=== PATIENT | male | born 1980 | race Caucasian/White ===

== ENCOUNTER 2017-07-04 03:05 | Inpatient (IN) ==
[2017-07-04] MEDS ORDERED: Aspirin 81 MG TAB.CHEW PO ONE (03:20)
[2017-07-04] MEDS ORDERED: *HR* Morphine 2 MG/ML SYRINGE IVP ONE ×2 (03:20→03:36)
--- NOTE | 2017-07-04 03:24 | Emergency Department Note ---
Disposition Clinical Impression: Chest pain Qualifiers: Chest pain type: unspecified Qualified Code(s): R07.9 - Chest pain, unspecified Disposition: Admitted As Inpatient Condition: Good Time of Disposition: 06:18 Chest Pain HPI - General Chief Complaint: ED Chest Pain Stated Complaint: chest/back pain Time Seen by Provider: 07/04/17 03:17 Source: patient Limitations: no limitations Vital Signs Reviewed: Yes Nursing Notes Reviewed: Yes - History of Present Illness Pt complaint: chest pain Onset (ago): hour(s) Duration: gradually worsening Onset: during rest Pain Location: substernal Severity scale (1-10): 10 Quality: sharp, other (Stabbing crushing) Improves with: nothing Worsens with: nothing Context: recent illness Associated symptoms: Reports: diaphoresis, dyspnea Treatments prior to arrival chest pain: none - Related Data Home Medications Medication Instructions Recorded Confirmed Atenolol [Tenormin] 11/18/15 Warfarin [Coumadin] 10 mg PO 1800 11/18/15 11/18/15 Previous Rx's Medication Instructions Recorded Docusate [Colace] 100 mg PO BID #30 capsule 08/23/15 Hydrocodone/Acetaminophen [[place] 1 tab PO Q4H PRN #14 tab NS 11/18/15 5-325 Tablet] Promethazine/Dextromethorphan 5 ml PO Q4H PRN #120 ml 02/09/17 [Promethazine-Dm Syrup] levoFLOXacin [Levaquin] 500 mg PO DAILY #7 tablet 02/09/17 Allergies Allergy/AdvReac Type Severity Reaction Status Date / Time No Known Allergies Allergy Verified 08/17/15 16:40 All systems ED: reviewed and negative except as stated. Constitutional: Denies: fever, chills Eyes: Denies: eye discharge ENT ED: Denies: throat pain Cardiovascular: Reports: chest pain Respiratory: Reports: dyspnea Gastrointestinal: Denies: nausea, vomiting Genitourinary: Denies: dysuria Musculoskeletal: Denies: back pain Integumentary: Denies: rash Neurological: Denies: headache Psychiatric: Denies: anxiety Endocrine: Denies: fatigue Hematological/Lymphatic: Denies: easy bleeding Allergic/Immunologic: Denies: facial swelling Chest Pain PMH - Past Medical History Medical history: Reports: DVT, hypertension, pulmonary embolus, other Surgical history: Reports: no surgical history Psychiatric history: Reports: no psych history - Social History Smoking Status: Never smoker Alcohol use: Reports: none Drug use: Reports: none Physical Exam - General Limitations: no limitations General appearance: alert, in no apparent distress - Head Head exam: normocephalic - Eye Eye exam: Present: EOMI. Absent: conjunctival injection - ENT ENT exam: mucous membranes moist - Neck Neck exam: Present: full ROM - Chest Chest inspection: Present: symmetric chest wall rise - Respiratory Respiratory exam: Present: normal lung sounds bilaterally. Absent: respiratory distress - Cardiovascular Cardiovascular exam: Present: normal rhythm - Abdominal Exam Abdominal exam: Present: soft, Non-Tender - Extremities Exam Extremities exam: Present: normal inspection, full ROM, normal capillary refill - Back Exam Back exam: Present: full ROM - Neurological Exam Neurological exam: Present: alert - Psychiatric Psychiatric exam: Present: normal affect, normal mood - Skin Skin exam: Present: warm, dry, intact, normal color, diaphoresis. Absent: rash , cyanosis Course Course Narrative: 36-year-old male arrives to department by private vehicle with complaints of chest pain, shortness of breath. Symptoms started 1 hour prior to his arrival. He states he was sitting doing nothing at this time. Denies any previous cardiac issues, does does mention a history of full pulmonary embolisms due to antiphospholipid antibody syndrome . Currently taking anti-coagulants. Patient seen and examined. Workup initiated. Initial EKG, concerning for inferior MA. Hold nitroglycerin per Dr. Todd. We will also consider CTA pending labs. - Reevaluation(s) Reevaluation #1: Pt discussed with Dr. Oleary who agreed for admission. He also requested PO potassium. Time: 05:38 Vital Signs Temperature 98.1 F 07/04/17 03:07 Pulse Rate 76 07/04/17 03:07 Respiratory Rate 16 07/04/17 03:07 Blood Pressure 163/95 07/04/17 03:07 O2 Sat by Pulse Oximetry 96 07/04/17 03:07 Temperature 98.3 F 07/04/17 07:40 Pulse Rate 76 07/04/17 07:40 Respiratory Rate 16 07/04/17 07:40 Blood Pressure 149/91 07/04/17 07:40 O2 Sat by Pulse Oximetry 96 07/04/17 07:40 Oxygen Delivery Oxygen Delivery Nasal Cannula Chest Pain - MDM Narrative Medical decision making narrative: Patient is a 36-year-old male nonsmoker that had presented with chest pain. He describes the pain starting while he was at rest sitting on his couch at home., and denies any exertion or activity prior to that. This started just prior to his arrival. Chest pain was accompanied with some shortness of breath, and in the department he was also diaphoretic. He denied any radiation to his neck or his extremities, or any worsening on exertion. He did describe some back pain. Initial EKGs were performed upon patient's arrival and reviewed by resident Dr. Zarco and Dr. Todd, who had advised him nitroglycerin for possible inferior MA. Patient did have some improvement with Dilaudid for his pain during his course here. Patient does have a history of antiphospholipid antibody syndrome, as had history of multiple PEs, and is currently anticoagulated on warfarin. No recent changes. Due to his chest pain, CT was ordered however it showed no concerning signs for PE, however did show groundglass opacities. CTA was actually performed before radiology could provide the portable x-ray. X-ray showed right base consolidation. Patient labs showed negative troponin. He did have an increased white blood cell count , but has denied fevers, cough, chills, night sweats. I discussed patient with Dr. Pelaez who agreed with workup and treatment, and advised admission for cardiac rule out. Patient was discussed with Dr. Oleary who accepted patient. Prior to discharge from the department, patient was given by mouth potassium for hypokalemia. Chest X-Ray 07/04/17 03:10 IMPRESSION: 1. Right base consolidation. In the proper clinical setting, finding is compatible with pneumonia. Recommend follow-up chest radiograph 6-8 weeks post completion of treatment to ensure resolution. If finding persists at that time, CT of the chest would be recommended. If patient does not have clinical symptoms of infection, recommend CT for further evaluation. D/ / Juvencio Aguero MD / Juvencio Aguero MD Interpreting Provider: Juvencio Aguero MD Chest CTA 07/04/17 04:07 IMPRESSION: 1. Limited study with no central or segmental pulmonary embolus. 2. Ground-glass opacities are nonspecific and could indicate infection, inflammation, edema or atelectasis. D/ / Enrico Rodriguez MD / Enrico Rodriguez MD Interpreting Provider: Enrico Rodriguez MD - Lab Data Lab results reviewed: Yes I reviewed the patient's lab results. Result diagrams: 07/04/17 03:24 07/04/17 03:24 Lab Results 07/04/17 07/04/17 07/04/17 Range/Units 03:24 03:24 03:24 WBC 22.0 H (4.3-11.1) K/mcL RBC 6.16 H (4.19-5.50) M/mcL Hgb 16.6 (12.9-16.9) g/dL Hct 48.1 (37.5-50.1) % MCV 78.1 L (83.0-100.0) fL MCH 26.9 L (28.0-33.3) pg MCHC 34.5 (31.6-35.5) g/dL RDW 14.0 (11.5-14.5) % Plt Count 324 (140-400) K/mcL MPV 10.1 (9.4-12.4) fL Immature Gran % 0.7 (0-4) % Seg Neutrophils % 76.7 % Lymphocytes % 14.8 % Monocytes % 5.9 % Eosinophils % 1.4 % Basophils % 0.5 % Neutrophils # 16.9 H (1.6-8.9) K/mcL Lymphocytes # 3.3 (0.6-4.6) K/mcL Monocytes # 1.3 (0.0-1.3) K/mcL Eosinophils # 0.3 (0.0-0.6) K/mcL Basophils # 0.1 (0.0-0.2) K/mcL PT (9.4-12.1) Seconds INR APTT (26.0-36.0) Seconds Sodium 140 (136-145) mEq/L Potassium 2.9 L (3.5-4.5) mEq/L Chloride 101 (98-109) mEq/L Carbon Dioxide 28 (19-29) mEq/L BUN 19 (8-26) mg/dL Creatinine 1.16 (0.72-1.25) mg/dL Est GFR ( Amer) > 60 (> 60) Est GFR (Non-Af Amer) > 60 (> 60) BUN/Creatinine Ratio 16 (6-26) Glucose 207 H (70-99) mg/dL Calculated Osmolality 298 (280-300) Calcium 9.4 (8.6-10.8) mg/dL Troponin I 0.00 (0-0.03) ng/mL 07/04/17 Range/Units 03:25 WBC (4.3-11.1) K/mcL RBC (4.19-5.50) M/mcL Hgb (12.9-16.9) g/dL Hct (37.5-50.1) % MCV (83.0-100.0) fL MCH (28.0-33.3) pg MCHC (31.6-35.5) g/dL RDW (11.5-14.5) % Plt Count (140-400) K/mcL MPV (9.4-12.4) fL Immature Gran % (0-4) % Seg Neutrophils % % Lymphocytes % % Monocytes % % Eosinophils % % Basophils % % Neutrophils # (1.6-8.9) K/mcL Lymphocytes # (0.6-4.6) K/mcL Monocytes # (0.0-1.3) K/mcL Eosinophils # (0.0-0.6) K/mcL Basophils # (0.0-0.2) K/mcL PT 27.0 H (9.4-12.1) Seconds INR 2.4 APTT 63.4 H (26.0-36.0) Seconds Sodium (136-145) mEq/L Potassium (3.5-4.5) mEq/L Chloride (98-109) mEq/L Carbon Dioxide (19-29) mEq/L BUN (8-26) mg/dL Creatinine (0.72-1.25) mg/dL Est GFR ( Amer) (> 60) Est GFR (Non-Af Amer) (> 60) BUN/Creatinine Ratio (6-26) Glucose (70-99) mg/dL Calculated Osmolality (280-300) Calcium (8.6-10.8) mg/dL Troponin I (0-0.03) ng/mL - Radiology Data Radiology results reviewed: Yes I reviewed the patient's radiology results. Chest X-Ray 07/04/17 03:10 IMPRESSION: 1. Right base consolidation. In the proper clinical setting, finding is compatible with pneumonia. Recommend follow-up chest radiograph 6-8 weeks post completion of treatment to ensure resolution. If finding persists at that time, CT of the chest would be recommended. If patient does not have clinical symptoms of infection, recommend CT for further evaluation. D/ / Juvencio Agueor MD / Juvencio Aguero MD Interpreting Provider: Juvencio Aguero MD Chest CTA 07/04/17 04:07 IMPRESSION: 1. Limited study with no central or segmental pulmonary embolus. 2. Ground-glass opacities are nonspecific and could indicate infection, inflammation, edema or atelectasis. D/ / Enrcio Rodriguez MD / Enrico Rodriguez MD Interpreting Provider: Enrico Rodriguez MD - EKG Data EKG attestation: Yes I reviewed and interpreted this EKG. Heart Score - Score History: Moderately Suspicious (risk factors include HTN and obesity) EKG: Non Specific repolarisation Disturbance Age: Less than 45 Risk Factors: 1-2 risk factors Troponin: Less than normal limit HEART Score Total: 3 Attestation Statement - Attestation Attestation: I, Matt Todd MD, personally evaluated this patient and discussed their management with the midlevel provicer, PAC/BENEFITS SPECIALIST. I reviewed the midlevel provider 's note and agree with the documented findings, medical decision making, and plan of care. 36-year-old male presents to the emergency department with a complaint of severe epigastric and lower substernal chest pain which started about midnight tonight. The pain radiates through to the back. Patient describes the pain as a severe pressure-like discomfort. He complains of profuse diaphoresis associated with the pain. Shortness of breath. Nausea. No cardiac history. On examination patient is a well-developed morbidly obese male in moderate distress. He is pale and diaphoretic. No cyanosis. Alert and oriented 3. Chest is nontender to palpation. Breath sounds are clear and equal bilaterally. Heart regular rate and rhythm. Abdomen soft and nontender with normal bowel sounds. Labs reviewed. Troponin 0.00. No STEMI on EKG. Chest x-ray and CTA of the lungs obtained. No pulmonary embolism. Some patchy pulmonary opacities. The hospitalist, Dr. Oleary, was consulted and accepted admission of the patient.
[2017-07-04 03:33] LABS: Basophils # 0.1 K/mcL (0.0-0.2); Basophils % 0.5 %; Eosinophils # 0.3 K/mcL (0.0-0.6); Eosinophils % 1.4 %; Hematocrit 48.1 % (37.5-50.1); Hemoglobin 16.6 g/dL (12.9-16.9); Immature Granulocytes % 0.7 % (0-4); Lymphocytes # 3.3 K/mcL (0.6-4.6); Lymphocytes % 14.8 %; Mean Corpuscular HGB Conc 34.5 g/dL (31.6-35.5); Mean Corpuscular Hemoglobin 26.9 pg (28.0-33.3); Mean Corpuscular Volume 78.1 fL (83.0-100.0); Mean Platelet Volume 10.1 fL (9.4-12.4); Monocytes # 1.3 K/mcL (0.0-1.3); Monocytes % 5.9 %; Neutrophils # 16.9 K/mcL (1.6-8.9); Platelet Count 324 K/mcL (140-400); Red Blood Count 6.16 M/mcL (4.19-5.50); Segmented Neutrophils % 76.7 %
[2017-07-04] MEDS ORDERED: Ondansetron 4 MG/2 ML VIAL IVP ONE (03:35)
[2017-07-04] MEDS ORDERED: *HR* HYDROmorphone (PF) 1 MG/ML SYRINGE IVP ONE ×3 (03:39→06:28)
[2017-07-04 03:41] LABS: INR 2.4
[2017-07-04 03:44] LABS: Activated Partial Thrombo Time 63.4 Seconds (26.0-36.0)
[2017-07-04 03:45] LABS: BUN/Creatinine Ratio 16 (6-26); Blood Urea Nitrogen 19 mg/dL (8-26); Calcium 9.4 mg/dL (8.6-10.8); Carbon Dioxide 28 mEq/L (19-29); Chloride 101 mEq/L (98-109); Glucose 207 mg/dL (70-99); Osmolality,Calculated 298 (280-300); Potassium 2.9 mEq/L (3.5-4.5); Sodium 140 mEq/L (136-145); eGFR For African Americans > 60 (> 60); eGFR For Non-African Americans > 60 (> 60)
[2017-07-04] MEDS ORDERED: *HR* HYDROmorphone (PF) 1 MG/ML SYRINGE ONE (06:40)
[2017-07-04] MEDS ORDERED: Nitroglycerin 0.4 MG TAB.SUBL SL ONE (07:59)
[2017-07-04] MEDS ORDERED: Nitroglycerin 0.4 MG TAB.SUBL SL PRN (08:02)
[2017-07-04] MEDS: Levofloxacin 750 MG/150 ML 750 MG/150 ML BAG IVPB SCH (08:57)
[2017-07-04] MEDS ORDERED: Ondansetron 4 MG/2 ML VIAL IVP PRN (09:21)
[2017-07-04] MEDS ORDERED: Naloxone 0.4 MG/ML INJ IVP PRN (09:21)
[2017-07-04] MEDS ORDERED: Ibuprofen 800 MG TABLET PO PRN (09:27)
[2017-07-04] MEDS ORDERED: *HR* Dextrose 50 % in Water (Syg) 50 ML SYRINGE IVP PRN (09:50)
[2017-07-04] MEDS ORDERED: Dextrose Gel 15 GM PO PRN ×2 (09:50)
[2017-07-04] MEDS ORDERED: D5% in Water 1,000 ML IVC PRN (09:50)
[2017-07-04] MEDS: *HR* HYDROcodone/Acet 7.5/325 mg TABLET PO PRN ×2 (10:03→22:58)
[2017-07-04] MEDS: Pantoprazole 40 MG VIAL IVP SCH (10:03)
[2017-07-04] MEDS: *HR* Morphine 2 MG/ML SYRINGE IVP PRN ×3 (10:09→17:33)
[2017-07-04] MEDS: Ipratropium/Albuterol Neb 3 ML IH SCH ×4 (11:22→23:44)
[2017-07-04] MEDS: Insulin LISPRO 300 UNITS/3 ML VIAL SQ SCH ×2 (12:35→16:45)
--- NOTE | 2017-07-04 13:48 | Internal Med History&Physical ---
<Timothy Lucero - Last Filed: 07/04/17 16:16> Date of Encounter: 07/04/17 Time of Encounter: 09:00 Assessment and Plan (1) Pneumonia Status: Acute Patient presents with chest pain that is pleuritic in nature based on his description of pain increasing with inspiration. CTA of chest today shows no central or segmental pulmonary embolus. Single view chest x-ray today shows right base consolidation compatible with pneumonia. Patient does not currently meet sepsis criteria but WBCs are elevated at 22. IV Levaquin 750 mg daily administered for infection coverage. Legionella and strep pneumoniae urine cultures were ordered. Patient cannot currently produce sputum but will consider sputum culture if this changes. Follow-up labs ordered. Patient to be monitored closely for signs of increasing infection, cardiac and/or respiratory distress. Qualifiers: Pneumonia type: due to unspecified organism Laterality: right Lung location: lower lobe of lung Qualified Code(s): J18.1 - Lobar pneumonia, unspecified organism (2) Chest pain Status: Acute Patient presents with acute chest pain since 1 a.m. this morning that he describes as a pain that becomes severe with inspiration and radiates to his back. Patient denies any cardiac history and has a history of DVT and PE. CT scan of the chest today is negative for PE. Cardiology consult ordered and discussed with Dr. Scott who will see patient. Echocardiogram ordered. Troponins to be trended x2 (first and second troponins both 0.00). Patient placed on continuous cardiac telemetry and supplemental O2 with SpO2 monitoring. Repeat EKG ordered. Stair-step pain medications ordered for pain management. Patient reports SL nitroglycerin did not affect his CP. Will continue to monitor patient and chest pain. Qualifiers: Chest pain type: chest pain on breathing Qualified Code(s): R07.1 - Chest pain on breathing; R07.81 - Pleurodynia (3) SOB (shortness of breath) Status: Acute Patient presents with acute shortness of breath related to chest pain which he states becomes worse upon inspiration and is consistent with findings of suggested pneumonia. Patient placed on supplemental O2 titration if SPO2 less than 92% and continuous SPO2 monitoring. Patient placed as falls precautions/ up with assist/bedrest with bathroom privileges with assist only due to SOB. Will monitor patient and vital signs. (4) Leukocytosis Status: Acute Patient presents with acute leukocytosis and WBC of 22 upon admission to ED. Single view CXR taken today shows right base consolidation compatible with pneumonia. IV Levaquin started for infection control and follow-up labs will be monitored for WBCs Qualifiers: Leukocytosis type: unspecified Qualified Code(s): D72.829 - Elevated white blood cell count, unspecified (5) Hypokalemia Status: Acute Patient presents with potassium level of 2.9 on admission to ED today. Patient received 20 MeQ of potassium in ED and 20 MeQ upon admission to floor. Will monitor patient's electrolytes through follow-up labs. (6) DVT prophylaxis Status: Acute Patient placed on DVT prophylaxis due to current admission protocol, bedrest status, and patient's history of DVTs/PEs. Patient takes Coumadin due to history of DVT/PE. Will hold Coumadin today until cardiology sees patient per cardiology and place bilateral SCDs on patient's LEs. Internal Medicine - H&P: HPI Chief complaint: Chest pain Admitted From: Emergency Dept Plans for Post Hospital Care: Home History of present illness: Mr. Cervantes is a 36 year old male who presents from the ED with chief complaint of chest pain, dyspnea, diaphoresis. Patient states the chest pain began about 1 AM today and has never happened before. He reports the pain becomes worse with inspiration and radiates to his back. He reports chills but denies any nausea, vomiting, fever, cough, or recent illness. Patient received 10 mg of morphine and 3 mg of Dilaudid in the ED which he states did not help with his pain. Patient denies any cardiac history of previous chest pain or CO. Medical history includes DVT, PE, antiphospholipid antibody syndrome, and hypertension. Will order lipid panel to assess for hyperlipidemia. Patient reports he has never smoked. Mr. Cervantes is currently on anticoagulation due to history of DVT/PE. CT scan dated today shows limited study with no central or segmental pulmonary embolus. However, groundglass opacities are nonspecific and could indicate infection, inflammation, edema, or atelectasis. Single view CXR dated today shows right base consolidation compatible with pneumonia. Patient's current WBCs are 22 on admission to ED with heart rate of 76 respiration rate of 16, and temperature of 98.1 F. Patient does not currently meet sepsis criteria but will be treated for chest pain rule-out as well as pneumonia. Mr. Cervantes is at moderate risk for further morbidity based on his current symptoms and history and will be placed as inpatient status with orders for continuous cardiac telemetry, supplemental O2 with continuous SPO2 monitoring, troponins trended x2, echocardiogram, IV Levaquin 750 mg daily, and stair-step pain medications for pain control. Patient to be monitored closely for increasing signs of cardiac and/or respiratory distress. Time spent with patient greater than 40 minutes. Past Med Surg Social Fam HX - Past Medical History Source: patient Medical history: DVT, hypertension, pulmonary embolus, other Psychiatric history: no psych history - Past Surgical History Surgical History: no surgical history - Social History Smoking Status: Never smoker Smokeless Tobacco Status: No Alcohol use: none Drug use: none Occupational status: employed Current living situation: Home, With Family Activity Level: Independent ambulation Recent Out of Country Travel Within the Last 8 Weeks: No Exposure or Possible Exposure to Illness During Travel: No - Family History Father Race: Family Member Ethnicity: Non- Living Status: Still Living Hx Family Cardiac Disorders: Yes (HTN) Hx Family Endocrine Disorder: Yes (DM) Mother Race: Family Member Ethnicity: Non- Living Status: Still Living Hx Family Cardiac Disorders: Yes (Factor V Leiden, PVCs) Sister Race: Family Member Ethnicity: Non- Living Status: Still Living Hx Family Cardiac Disorders: Yes (Factor V Leiden, Afib) Internal Medicine - H&P: Meds Warfarin [Coumadin] 10 mg PO DAILY 11/18/15 [History] Atenolol/Chlorthalidone [Tenoretic 50 Tablet] 1 tab PO DAILY 07/04/17 [History] levoFLOXacin [Levaquin] 750 mg PO DAILY #10 tablet 07/05/17 [Rx] Allergies No Known Allergies Allergy (Verified 08/17/15 16:40) All Systems PM: A 10-system review of systems was performed and is negative for pertinent findings except as documented above in the HPI. - Constitutional Constitutional: no chills, no fever(s), no night sweats - EENT Eyes: no change in vision, no discharge, no pain, no photophobia Ears: no ear discharge, no ear pain, no tinnitus Nose, mouth and throat: no dysphagia, no nasal discharge, no neck pain, no sore throat - Breasts Breasts: as per HPI - Cardiovascular Cardiovascular ROS IM: as per HPI, chest pain, diaphoresis, dyspnea, dyspnea on exertion - Respiratory Respiratory: as per HPI, dyspnea, dyspnea on exertion, pain on inspiration - Gastrointestinal Gastrointestinal: no abdominal pain, no diarrhea, no hematemesis, no hematochezia, no melena, no nausea, no vomiting - Genitourinary Genitourinary ROS male: as per HPI - Musculoskeletal Musculoskeletal ROS IM: no numbness, no tingling - Integumentary Integumentary IM: no rash, no unusual bruising - Neurological Neurological ROS: no confusion, no convulsions, no focal weakness, no numbness, no tingling, no tremor(s) - Psychiatric Psychiatric: as per HPI - Endocrine Endocrine IM: as per HPI - Hematologic/Lymphatic Hematologic/Lymphatic: no easy bruising - Allergic/Immunologic Allergic/Immunologic: as per HPI - Constitutional Vitals: Temp Pulse Resp BP Pulse Ox 98.3 F 81 18 168/89 95 07/04/17 11:54 07/04/17 11:54 07/04/17 11:54 07/04/17 11:54 07/04/17 11:54 General appearance: Present: cooperative, A&O X 3, morbidly obese, pleasant, severe distress, answers questions appropriately - Head Head exam: Present: atraumatic, normocephalic - Eye Eye exam: Present: PERRL, conjuntiva pink, sclera anicteric Pupils: Present: PERRL - ENT ENT exam: Present: normal exam, normal external ear exam - Neck Neck exam general surgery: Present: normal inspection, supple, trachea midline - Respiratory Respiratory exam: Present: accessory muscle use, respiratory distress. Absent: rales, rhonchi, wheezes - Cardiovascular Cardiovascular exam: Present: RRR, +S1, +S2. Absent: diastolic murmur, gallop, rubs, systolic murmur - GI/Abdominal GI/Abdominal exam: Present: normal bowel sounds, soft, no peritoneal signs. Absent: distended, tenderness - Rectal Rectal exam: Present: deferred - Additional comments: exam deferred. - Extremities Exam Extremities exam: Present: warm, radial pulses palpable and symetrical. Absent : calf tenderness, cyanotic, pedal edema - Back Exam Back exam: Present: normal inspection - Neurological Exam Neurological exam: Present: CN II-XII intact, oriented X3, no focal deficits. Absent: pronater drift, facial droop, speech deficit - Psychiatric Psychiatric exam: Present: flat affect - Skin Skin exam: Present: dry, intact Internal Med - H&P Results - Labs CBC & Chem 7: 07/04/17 03:24 07/04/17 15:05 Labs: Cardiac Enzymes 07/04/17 Range/Units 09:44 Troponin I 0.00 (0-0.03) ng/mL - EKG Data EKG shows normal: sinus rhythm - EKG Data Prior EKG available for review: no Interpretation IM: suggestive of ischemia EKG comments: 07/04/17 14:51 EKG dated 07/04/17 shows sinus rhythm and voltage criteria for LVH, possible anterior myocardial infarction of indeterminate age, moderate T-wave abnormality (consider lateral ischemia). - Diagnostic Studies Chest x-ray Additional comments: Impressions Chest X-Ray 07/04/17 03:10 IMPRESSION: 1. Right base consolidation. In the proper clinical setting, finding is compatible with pneumonia. Recommend follow-up chest radiograph 6-8 weeks post completion of treatment to ensure resolution. If finding persists at that time, CT of the chest would be recommended. If patient does not have clinical symptoms of infection, recommend CT for further evaluation. D/ / Juvencio Aguero MD / Juvencio Aguero MD Interpreting Provider: Juvencio Aguero MD Other Images Additional comments: Impressions Chest CTA 07/04/17 04:07 IMPRESSION: 1. Limited study with no central or segmental pulmonary embolus. 2. Ground-glass opacities are nonspecific and could indicate infection, inflammation, edema or atelectasis. D/ / Enrico Rodriguez MD / Enrico Rodriguez MD Interpreting Provider: Enrico Rodriguez MD <Lady Finney - Last Filed: 07/05/17 17:31> Date of Encounter: 07/05/17 Assessment and Plan (1) Antiphospholipid syndrome Status: Acute (2) Chest pain Status: Acute Qualifiers: Chest pain type: chest pain on breathing Qualified Code(s): R07.1 - Chest pain on breathing; R07.81 - Pleurodynia (3) Leukocytosis Status: Acute Qualifiers: Leukocytosis type: unspecified Qualified Code(s): D72.829 - Elevated white blood cell count, unspecified (4) Pneumonia Status: Acute Qualifiers: Pneumonia type: due to unspecified organism Laterality: right Lung location: lower lobe of lung Qualified Code(s): J18.1 - Lobar pneumonia, unspecified organism (5) DVT prophylaxis Status: Acute (6) PNA (pneumonia) Status: Acute Internal Medicine - H&P: HPI History of present illness: Mr. Cervantes is a 36 year old male All Systems PM: A 10-system review of systems was performed and is negative for pertinent findings except as documented above in the HPI. - Constitutional Vitals: Temp Pulse Resp BP Pulse Ox 99.5 F 76 16 163/82 96 07/05/17 11:41 07/05/17 11:41 07/05/17 11:41 07/05/17 11:41 07/05/17 11:41 Internal Med - H&P Results - Labs CBC & Chem 7: 07/05/17 03:03 07/05/17 03:03 Labs: Short CBC 07/05/17 Range/Units 03:03 WBC 16.6 H (4.3-11.1) K/mcL Hgb 14.8 D (12.9-16.9) g/dL Hct 42.7 (37.5-50.1) % Plt Count 209 (140-400) K/mcL Neutrophils # 13.6 H (1.6-8.9) K/mcL BMP 07/05/17 03:03 Sodium 135 L Potassium 3.5 Chloride 96 L Carbon Dioxide 29 BUN 13 Creatinine 0.92 Glucose 116 H Calcium 9.9 - Attending Attestation Patient was in person seen and examined. Plan discussed with nurse practitioner. Detailed examination done patient chest examination is clear without any pleural rub and heart is S1 and S2 rate rhythm regular. and after putting him on ibuprofen he feels much better.
[2017-07-04] MEDS ORDERED: (Atenolol/Chlorthalidone [Tenoretic 50 Tablet] 1 TAB) PO SCH (14:15)
[2017-07-04 16:01] LABS: Amphetamine Screen,Urine Negative ng/mL (Cutoff=1000); Barbiturate Screen,Urine Negative ng/mL (Cutoff=200); Benzodiazepines Screen,Urine Negative ng/mL (Cutoff=200); Cannabinoid Screen,Urine Negative ng/mL (Cutoff = 50); Cocaine Screen,Urine Negative ng/mL (Cutoff= 300); Opiate Screen,Urine Positive ng/mL (Cutoff=300); Phencyclidine Screen,Urine Negative ng/mL (Cutoff=25)
[2017-07-04] MEDS ORDERED: Potassium Chloride 20 MEQ, Lidocaine 1% 2 ML in D5% in Water 250 ML IVPB ONE (16:16)
[2017-07-04] MEDS ORDERED: Magnesium Sulfate 2 GM in D5% in Water 100 ML IVPB ONE (16:17)
[2017-07-04] MEDS ORDERED: *HR* Warfarin 10 MG TABLET PO SCH (18:00)
[2017-07-04 18:01] LABS: Hemoglobin A1C 5.2 %
[2017-07-04] MEDS ORDERED: Insulin LISPRO 300 UNITS/3 ML VIAL SQ SCH (21:00)
[2017-07-04] MEDS ORDERED: Melatonin 3 MG TABLET PO ONE (23:15)
[2017-07-05] MEDS: Ipratropium/Albuterol Neb 3 ML IH SCH ×3 (03:13→11:17)
[2017-07-05 04:02] LABS: Basophils % 0.2 %; Eosinophils % 0.1 %; Hematocrit 42.7 % (37.5-50.1); Immature Granulocytes % 0.6 % (0-4); Lymphocytes # 1.5 K/mcL (0.6-4.6); Lymphocytes % 8.9 %; Mean Corpuscular HGB Conc 34.7 g/dL (31.6-35.5); Mean Corpuscular Hemoglobin 27.8 pg (28.0-33.3); Mean Corpuscular Volume 80.3 fL (83.0-100.0); Mean Platelet Volume 10.2 fL (9.4-12.4); Monocytes # 1.3 K/mcL (0.0-1.3); Monocytes % 8.1 %; Neutrophils # 13.6 K/mcL (1.6-8.9); Platelet Count 209 K/mcL (140-400); Red Blood Count 5.32 M/mcL (4.19-5.50); Red Cell Distribution Width 15.2 % (11.5-14.5); Segmented Neutrophils % 82.1 %
[2017-07-05 04:16] LABS: INR 2.8
[2017-07-05 04:18] LABS: Activated Partial Thrombo Time 63.1 Seconds (26.0-36.0); BUN/Creatinine Ratio 14 (6-26); Blood Urea Nitrogen 13 mg/dL (8-26); Calcium 9.9 mg/dL (8.6-10.8); Carbon Dioxide 29 mEq/L (19-29); Chloride 96 mEq/L (98-109); Chol/HDL Ratio 3.7 (0-4.9); Cholesterol 159 mg/dL (< 200); Glucose 116 mg/dL (70-99); HDL Cholesterol 43 mg/dL (40-59); LDL Cholesterol,Calculated 101 mg/dL (0-99); Magnesium 2.1 mg/dL (1.6-2.6); Osmolality,Calculated 281 (280-300); Potassium 3.5 mEq/L (3.5-4.5); Sodium 135 mEq/L (136-145); Triglycerides 77 mg/dL (< 150); eGFR For African Americans > 60 (> 60); eGFR For Non-African Americans > 60 (> 60)
[2017-07-05 04:20] LABS: Hemoglobin A1C 5.1 %
[2017-07-05 04:30] LABS: Hemoglobin 14.8 g/dL (12.9-16.9)
--- NOTE | 2017-07-05 08:36 | Cardiology Consult Note ---
<Td Burciaga - Last Filed: 07/05/17 08:33> Date of Encounter: 07/05/17 Time of Encounter: 08:34 Assessment and Plan (1) Chest pain not due to acute coronary syndrome Status: Acute After evaluating him his chest pain was most likely not due to an acute ischemic event and is most likely due to his diagnosed pneumonia. Due to feeling better and the chest pain subsiding after being on IV antibiotics shows more to this being our source of chest pain. His description of the pain seemed to be more pleuritic and that it came on all of a sudden is less likely to be cardiac in nature. He also has no cardiac history as well as family history. His only risk factor for ACS is hypertension. EKG did show some non- specific changes in the precordial leads as t-wave inversion but no ST segment changes. There was no old EKG to compare with. Echo was done in the hospital that showed to be completely normal with a LVEF of 70%. All of these findings lead no coronary causes of his chest pain. We would recommend he has an outpatient stress test done due to the non- specific EKG changes. There is no other cardiac workup needed at this time. Cardiology will be signing off this patient. Discussion w patient/family: The assessment and plan as outlined above was discussed with the patient and/or family members who expressed understanding and agreement. All questions were answered. Thank you for involving us in the care of your patient. Please call with any questions. History of Present Illness Consult date: 07/04/17 Requesting physician: Timothy Lucero Consult reason: Chest Pain, Frequent PE/DVT, PVC's Chief complaint: Chest PAin History of present illness: Mr. Cervantes is a 36 year old male with PMH of HTN, PE/DVT due to antiphospholipid antibody syndrome presented to the ED complaining of Chest pain. He states the chest pain came on all of a sudden and it was a pressure type of pain that was bilaterally in his chest that radiated to his back. He was nauseous but did not vomit. He states he was sweating during the episode as well. He states this was a new pain he has never had before and it was nothing like his PE pain he has had in the past. He is chronically on coumadin due to PE/DVT hx as well as atenolol for HTN. PT has never smoked and has no cardiac history. He also states he has no family history of cardiac issues. On Exam today he states that he has no chest pain at this time and that it subsided last night. He states the 2 sublingual nitroglycerine did not help with his chest pain. He states today he feels a lot better and has no complaints. He states no sweating or nausea. Past Med Surg Social Fam HX - Past Medical History Medical history: DVT, hypertension, pulmonary embolus, other Psychiatric history: no psych history - Past Surgical History Surgical History: no surgical history - Social History Smoking Status: Never smoker Smokeless Tobacco Status: No Alcohol use: none Drug use: none - Family History Father Race: Family Member Ethnicity: Non- Living Status: Still Living Hx Family Cardiac Disorders: Yes (HTN) Hx Family Endocrine Disorder: Yes (DM) Mother Race: Family Member Ethnicity: Non- Living Status: Still Living Hx Family Cardiac Disorders: Yes (Factor V Leiden, PVCs) Sister Race: Family Member Ethnicity: Non- Living Status: Still Living Hx Family Cardiac Disorders: Yes (Factor V Leiden, Afib) Medications and Allergies Warfarin [Coumadin] 10 mg PO DAILY 11/18/15 [History] Atenolol/Chlorthalidone [Tenoretic 50 Tablet] 1 tab PO DAILY 07/04/17 [History] levoFLOXacin [Levaquin] 750 mg PO DAILY #10 tablet 07/05/17 [Rx] Allergies No Known Allergies Allergy (Verified 08/17/15 16:40) All Systems Review: A 10-system review of systems was performed and is negative for pertinent findings except as documented above in the HPI. - Constitutional Constitutional: no anorexia, no chills, no daytime sleepiness, no fatigue, no fever(s), no frequent falls, no headache(s), no lethargy, no malaise, no night sweats, no snoring, no stops breathing during sleep, no weakness, no weight gain , no weight loss - EENT Eyes: no blurred vision, no loss of vision, no pain Nose, mouth and throat: no bleeding gums, no dysphagia, no epistaxis, no mouth pain, no odynophagia, no sore throat - Cardiovascular Cardiovascular: chest pain at rest (Currently has subsided), diaphoresis ( Currently has subsided.), no chest pain with exertion, no claudication, no dyspnea at rest, no dyspnea on exertion, no irregular heart rhythm, no radiating jaw, neck or arm pain, no leg edema, no lightheadedness, no palpitations, no paroxysmal nocturnal dyspnea, no slow heart rate, no syncope - Respiratory Respiratory: no cough, no dyspnea, no hemoptysis - Gastrointestinal Gastrointestinal: no abdominal pain, no coffee ground emesis, no constipation, no diarrhea, no dysphagia, no hematemesis, no hematochezia, no nausea - Genitourinary Genitourinary: no dysuria, no hematuria - Musculoskeletal Musculoskeletal: no abnormal gait, no arthralgias, no back pain, no muscle cramps, no muscle weakness - Integumentary Integumentary: no erythema, no rash - Neurological Neurological: no abnormal speech, no dizziness, no focal weakness, no loss of vision, no memory loss, no numbness, no syncope - Psychiatric Psychiatric: no anxiety, no depression, no hallucinations - Hematological/Lymphatic Hematologic/Lymphatic: no easy bleeding, no easy bruising Physical Examination Vital Signs, Last 4 Hours Temp Pulse Resp BP Pulse Ox 07/05/17 07:28 16 97 07/05/17 07:12 98.8 F 63 16 132/81 97 07/05/17 04:51 98.4 F 66 18 154/88 95 General: Conversant, No Apparent Distress HEENT: Atraumatic, Normocephaly, Mucus Membranes Moist Neck: No JVD, Normal carotid pulses Cardiac: Reg Rate and Rhythm, Normal S1 and S2, No Murmur Lungs: Normal Breath Sounds, No Wheeze, Rales, Rhonchi Neuro: Alert and responsive, No focal deficits noted Abdomen: Soft, Non-Tender Skin: No rashes noted on visualized skin Musculoskeletal: No Chest Wall Tenderness Extremities: No Clubbing, No Cyanosis, No Edema, Normal Pulses Results 07/05/17 03:03 07/05/17 03:03 Lab Results 07/04/17 07/04/17 07/04/17 09:44 15:05 15:05 WBC Hgb Hct Plt Count INR APTT Sodium Potassium Chloride Carbon Dioxide BUN Creatinine Glucose Calcium Magnesium 1.8 Troponin I 0.00 0.04 H* 07/04/17 07/05/17 07/05/17 15:05 03:03 03:03 WBC 16.6 H Hgb 14.8 D Hct 42.7 Plt Count 209 INR 2.8 APTT 63.1 H Sodium Potassium 3.4 L Chloride Carbon Dioxide BUN Creatinine Glucose Calcium Magnesium Troponin I 07/05/17 03:03 WBC Hgb Hct Plt Count INR APTT Sodium 135 L Potassium 3.5 Chloride 96 L Carbon Dioxide 29 BUN 13 Creatinine 0.92 Glucose 116 H Calcium 9.9 Magnesium 2.1 Troponin I - Imaging and Cardiology Chest Xray: report reviewed, image reviewed Echo: report reviewed - EKG Interpretation EKG results cardiology: personally reviewed, sinus rhythm (Few non-specific changes in precordial leads with t-wave inversion. But no old EKG available to compare with.) Consult Discharge Plan - Plan Instructions: Chest Pain (DC), Pneumonia (DC) Referrals: Vic Navarro [Primary Care Provider] - 07/23/17 10:15 am Prescriptions: levoFLOXacin [Levaquin] 750 mg PO DAILY #10 tablet <Tammy Valdes - Last Filed: 07/05/17 12:56> Date of Encounter: 07/05/17 Assessment and Plan Discussion w patient/family: The assessment and plan as outlined above was discussed with the patient and/or family members who expressed understanding and agreement. All questions were answered. Thank you for involving us in the care of your patient. Please call with any questions. History of Present Illness History of present illness: Mr. Cervantes is a 36 year old male All Systems Review: A 10-system review of systems was performed and is negative for pertinent findings except as documented above in the HPI. Physical Examination Vital Signs, Last 4 Hours Temp Pulse Resp BP Pulse Ox 07/05/17 11:41 99.5 F 76 16 163/82 96 07/05/17 11:18 16 93 07/05/17 10:44 97 Results 07/05/17 03:03 07/05/17 03:03 Lab Results 07/04/17 07/04/17 07/04/17 15:05 15:05 15:05 WBC Hgb Hct Plt Count INR APTT Sodium Potassium 3.4 L Chloride Carbon Dioxide BUN Creatinine Glucose Calcium Magnesium 1.8 Troponin I 0.04 H* 07/05/17 07/05/17 07/05/17 03:03 03:03 03:03 WBC 16.6 H Hgb 14.8 D Hct 42.7 Plt Count 209 INR 2.8 APTT 63.1 H Sodium 135 L Potassium 3.5 Chloride 96 L Carbon Dioxide 29 BUN 13 Creatinine 0.92 Glucose 116 H Calcium 9.9 Magnesium 2.1 Troponin I - Attending Attestation I examined this patient and my medical decision-making was reviewed with the Resident Physician. I agree with the documented findings, disposition and treatment plan. We've been asked to evaluate Mr. Cervantes for chest pain. He was diagnosed with pneumonia and by history taking, has a pleuritic component to his chest pain. He denies any prior chest pain. His ECG is without acute findings. His initial troponins were negative x2 with the third one borderline at 0.4. He has minimal risk factors for CAD that being HTN. He does not have a smoking history or premature FH of CAD. He is not a diabetic and lipids are within acceptable range. Presentation is likely related to the presence of pneumonia. There does not appear to be an acute indication for stress testing or cardiac catheterization. I recommend that the patient be treated for pneumonia. If he has further chest pain as a outpatient after completing treatment, then stress testing can be considered. Patient expressed understanding and agreement with the plan.
[2017-07-05] MEDS: Levofloxacin 750 MG/150 ML 750 MG/150 ML BAG IVPB SCH (10:27)
[2017-07-05] MEDS: Insulin LISPRO 300 UNITS/3 ML VIAL SQ SCH (10:27)
[2017-07-05] MEDS: Pantoprazole 40 MG VIAL IVP SCH (10:28)
[2017-07-05] MEDS: *HR* HYDROcodone/Acet 7.5/325 mg TABLET PO PRN (10:36)
--- NOTE | 2017-07-05 11:35 | Internal Med Progress Note ---
Date of Encounter: 07/05/17 Time of Encounter: 11:32 - Assessment and plan (1) Antiphospholipid syndrome Current Visit: Yes Status: Acute (2) Chest pain Current Visit: Yes Status: Acute Qualifiers: Chest pain type: chest pain on breathing Qualified Code(s): R07.1 - Chest pain on breathing; R07.81 - Pleurodynia (3) Leukocytosis Current Visit: No Status: Acute Qualifiers: Leukocytosis type: unspecified Qualified Code(s): D72.829 - Elevated white blood cell count, unspecified (4) Pneumonia Current Visit: Yes Status: Acute Qualifiers: Pneumonia type: due to unspecified organism Laterality: right Lung location: lower lobe of lung Qualified Code(s): J18.1 - Lobar pneumonia, unspecified organism (5) DVT prophylaxis Current Visit: Yes Status: Acute - Subjective Interval history: Mr. Anil Vickers is a 36-year-old male presented with right-sided pneumonia and pleuritic chest pain. Cardiac enzymes were negative and cardiology has seen him who plans to see him in office in next few weeks as outpatient. He was treated with IV Levaquin and ibuprofen area at this time he is very comfortable seems to be breathing well does not need any oxygen and ambulates well. 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 Patient has history of antiphospholipid antibody syndrome. His INR is therapeutic. He had a CT chest on admission which was negative for PE. An echocardiogram was also done which showed normal cardiac ejection fraction in the range of 70% without any wall motion and normality of valvular abnormality. - Constitutional Vitals: Temp Pulse Resp BP Pulse Ox 98.8 F 63 16 132/81 93 07/05/17 07:12 07/05/17 07:12 07/05/17 11:18 07/05/17 07:12 07/05/17 11:18 General appearance: Present: cooperative, A&O X 3, morbidly obese, pleasant, severe distress, answers questions appropriately - Head Head exam: Present: atraumatic, normocephalic - Eye Eye exam: Present: PERRL, conjuntiva pink, sclera anicteric Pupils: Present: PERRL - Neck Neck exam general surgery: Present: supple, trachea midline. Absent: lymphadenopathy - Respiratory Respiratory exam: Present: CTAB. Absent: accessory muscle use, rales, rhonchi, wheezes - Cardiovascular Cardiovascular exam: Present: RRR, +S1, +S2. Absent: diastolic murmur, gallop, rubs, systolic murmur - GI/Abdominal GI/Abdominal exam: Present: normal bowel sounds, soft, no peritoneal signs. Absent: distended, tenderness - Extremities Exam Extremities exam: Present: warm, radial pulses palpable and symetrical. Absent : calf tenderness, cyanotic, pedal edema - Neurological Exam Neurological exam: Present: CN II-XII intact, oriented X3, no focal deficits. Absent: pronater drift, facial droop, speech deficit - Skin Skin exam: Present: dry, intact Internal Medicine: Result - Labs CBC & Chem 7: 07/05/17 03:03 07/05/17 03:03 Labs: Short CBC 07/05/17 Range/Units 03:03 WBC 16.6 H (4.3-11.1) K/mcL Hgb 14.8 D (12.9-16.9) g/dL Hct 42.7 (37.5-50.1) % Plt Count 209 (140-400) K/mcL Neutrophils # 13.6 H (1.6-8.9) K/mcL BMP 07/04/17 07/05/17 15:05 03:03 Sodium 135 L Potassium 3.4 L 3.5 Chloride 96 L Carbon Dioxide 29 BUN 13 Creatinine 0.92 Glucose 116 H Calcium 9.9 Cardiac Enzymes 07/04/17 Range/Units 15:05 Troponin I 0.04 H* (0-0.03) ng/mL - ABG Interpretation ABG results: PT/INR, D-dimer PT 31.0 Seconds (9.4-12.1) H 07/05/17 03:03 Consult Discharge Plan - Plan Referrals: Vic Navarro [Primary Care Provider] - 07/23/17 10:15 am
--- NOTE | 2017-07-05 11:38 | Discharge Summary ---
Date of Encounter: 07/05/17 Time of Encounter: 11:37 - Discharge Diagnosis (1) Antiphospholipid syndrome Priority: Secondary Status: Acute (2) Chest pain Priority: Secondary Status: Acute Qualifiers: Chest pain type: chest pain on breathing Qualified Code(s): R07.1 - Chest pain on breathing; R07.81 - Pleurodynia (3) Leukocytosis Priority: Secondary Status: Acute Qualifiers: Leukocytosis type: unspecified Qualified Code(s): D72.829 - Elevated white blood cell count, unspecified (4) Pneumonia Priority: Primary Status: Acute Qualifiers: Pneumonia type: due to unspecified organism Laterality: right Lung location: lower lobe of lung Qualified Code(s): J18.1 - Lobar pneumonia, unspecified organism (5) DVT prophylaxis Priority: Secondary Status: Acute (6) PNA (pneumonia) Priority: Primary Status: Acute Qualifiers: Qualified Code(s): J18.9 - Pneumonia, unspecified organism - Discharge Medications Prescriptions: levoFLOXacin [Levaquin] 750 mg PO DAILY #10 tablet Home Medications: Warfarin [Coumadin] 10 mg PO DAILY 11/18/15 [History] Atenolol/Chlorthalidone [Tenoretic 50 Tablet] 1 tab PO DAILY 07/04/17 [History] levoFLOXacin [Levaquin] 750 mg PO DAILY #10 tablet 07/05/17 [Rx] Allergies/Adverse Reactions: Allergies No Known Allergies Allergy (Verified 08/17/15 16:40) Procedures/tests Complete & Pending: Procedures Performed prior 72 hours Category Date Time Status ECG 12 lead ECG [ECG] Routine Y 07/04/17 05:26 Completed EKG [ECG 12 lead ECG] [ECG] Stat Y 07/04/17 15:21 Ordered Date of admission: 07/04/17 09:21 Primary care physician: Vic Navarro Consults: 07/04/17 14:25 Consult to Cardiology [CONS] Routine Comment: Consulting Provider: Cardiology Lalita Reason for Consult: Chest pain, hx of DVT/PE (CT neg for PE), and frequent PVCs Call Completed: Yes Discharging clinician: Lady Finney Anticipated date of discharge: 07/05/17 - Patient Status Disposition: Home, Self-Care Condition: Good Functional capacity at discharge: independent ambulation - Discharge Instructions Follow Up With: Vic Navarro [Primary Care Provider] - 07/23/17 10:15 am - Diet and Activity Activity: resume usual activities as tolerated Diet: advance to your usual diet Hospital course: Mr. Anil Cervantes is a 36-year-old male presented with right-sided pneumonia and pleuritic chest pain. Cardiac enzymes were negative and cardiology has seen him who plans to see him in office in next few weeks as outpatient. He was treated with IV Levaquin and ibuprofen area at this time he is very comfortable seems to be breathing well does not need any oxygen and ambulates well. 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 Patient has history of antiphospholipid antibody syndrome. His INR is therapeutic. He had a CT chest on admission which was negative for PE. An echocardiogram was also done which showed normal cardiac ejection fraction in the range of 70% without any wall motion and normality of valvular abnormality. - Time Spent with Patient Total time spent providing and/or coordinating discharge services: Greater than 30 minutes - Constitutional Vitals: Temp Pulse Resp BP Pulse Ox 98.8 F 63 16 132/81 93 07/05/17 07:12 07/05/17 07:12 07/05/17 11:18 07/05/17 07:12 07/05/17 11:18 General appearance: Present: cooperative, A&O X 3, morbidly obese, pleasant, severe distress, answers questions appropriately - Head Head exam: Present: atraumatic, normocephalic - Eye Eye exam: Present: PERRL, conjuntiva pink, sclera anicteric Pupils: Present: PERRL - Neck Neck exam general surgery: Present: supple, trachea midline. Absent: lymphadenopathy - Respiratory Respiratory exam: Present: CTAB. Absent: accessory muscle use, rales, rhonchi, wheezes - Cardiovascular Cardiovascular exam: Present: RRR, +S1, +S2. Absent: diastolic murmur, gallop, rubs, systolic murmur - GI/Abdominal GI/Abdominal exam: Present: normal bowel sounds, soft, no peritoneal signs. Absent: distended, tenderness - Extremities Exam Extremities exam: Present: warm, radial pulses palpable and symetrical. Absent : calf tenderness, cyanotic, pedal edema - Neurological Exam Neurological exam: Present: CN II-XII intact, oriented X3, no focal deficits. Absent: pronater drift, facial droop, speech deficit - Skin Skin exam: Present: dry, intact
[2017-07-05 11:50] VITALS: BP 163/82
--- NOTE | 2017-07-05 15:17 | Electrocardiograph Report ---
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
--- NOTE | 2017-07-05 15:18 | Electrocardiograph Report ---
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
== END 2017-07-05 12:21 | disposition home or self-care (01) | DRG 194 ==
LOC: EMEROO 03:05 → 2NENU 03:05
PROVIDERS: ADMIT Hospitalist; ATTEND Internal Medicine

== ENCOUNTER 2017-12-18 20:24 | Inpatient (IN) ==
[2017-12-18] MEDS ORDERED: Fluorescein Sodium STRIP OP ONE (22:59)
[2017-12-18] MEDS ORDERED: Tetracaine 0.5% OPTH 80 DROP/4 ML BOTTLE RIGHT EYE ONE (23:13)
[2017-12-19] MEDS ORDERED: ACYCLOVIR IVPB ONE (00:07)
[2017-12-19] MEDS ORDERED: D5 IVPB ONE (00:07)
[2017-12-19] MEDS ORDERED: WATER IVPB ONE (00:07)
[2017-12-19] MEDS ORDERED: 0.9 % Sodium Chloride 1,000 ML IVC ONE ×2 (00:09→04:18)
[2017-12-19 00:41] LABS: Basophils # 0.1 K/mcL (0.0-0.2); Basophils % 0.6 %; Eosinophils # 0.1 K/mcL (0.0-0.6); Eosinophils % 0.4 %; Hematocrit 41.3 % (37.5-50.1); Hemoglobin 14.3 g/dL (12.9-16.9); Immature Granulocytes % 0.7 % (0-4); Lymphocytes # 1.1 K/mcL (0.6-4.6); Lymphocytes % 8.1 %; Mean Corpuscular HGB Conc 34.6 g/dL (31.6-35.5); Mean Corpuscular Hemoglobin 27.3 pg (28.0-33.3); Monocytes # 1.7 K/mcL (0.0-1.3); Monocytes % 12.8 %; Neutrophils # 10.1 K/mcL (1.6-8.9); Platelet Count 219 K/mcL (140-400); Red Blood Count 5.23 M/mcL (4.19-5.50); Red Cell Distribution Width 14.1 % (11.5-14.5); Segmented Neutrophils % 77.4 %
--- NOTE | 2017-12-19 00:42 | Emergency Department Note ---
Disposition Clinical Impression: History of immunosuppression therapy, Hyponatremia, VIPUL (acute kidney injury) Herpes zoster Qualifiers: Herpes zoster complications: without complications Qualified Code(s): B02.9 - Zoster without complications Disposition: Admitted As Inpatient Condition: Fair Time of Disposition: 00:53 General Adult HPI - General Chief complaint: ED Skin/Abscess/Foreign Body Stated complaint: Rash on R Eye Time Seen by Provider: 12/18/17 22:41 Source: patient Limitations: no limitations Nursing Notes Reviewed: Yes Vital Signs Reviewed: Yes - History of Present Illness HPI Narrative: 37-year-old male complains of a shingles on his forehead 2 days ago. Patient states he noticed a rash on the right side of his forehead which has gotten worse over the past 2 days and now extending over the right eyelid and right side of his scalp. Patient denies any changes in vision or eye pain. Patient states he is immunosuppressed secondary to adrenal hemorrhage and is on daily 10 mg prednisone with a history of antiphospholipid C disease, multiple DVTs and PEs, for which patient is on Coumadin and has IVC filter in place. Pt also has a Hx of HIT. Pain Scale: 4 - Related Data Home Medications Medication Instructions Recorded Confirmed Atenolol/Chlorthalidone [Tenoretic 1 tab PO DAILY 07/04/17 12/19/17 50 Tablet] Famotidine [Pepcid] 20 mg PO BID 09/20/17 12/19/17 Aspirin [Lo-Dose Aspirin EC] 81 mg PO DAILY 11/30/17 12/19/17 Nortriptyline [Pamelor] 50 mg PO HS 11/30/17 12/19/17 Warfarin [Coumadin] 10 mg PO SUMOTUWETHFR 11/30/17 12/19/17 Warfarin [Coumadin] 15 mg PO SA 12/19/17 12/19/17 Allergies Allergy/AdvReac Type Severity Reaction Status Date / Time heparin Allergy See Verified 11/30/17 09:53 Comments levofloxacin [From Levaquin] Allergy See Verified 11/30/17 09:53 Comments All systems ED: reviewed and negative except as stated. Review of Systems: As Per HPI Constitutional: Reports: fever, chills Eyes: Denies: vision change ENT ED: Denies: ear pain Cardiovascular: Denies: chest pain Respiratory: Denies: cough, dyspnea Gastrointestinal: Denies: abdominal pain, nausea, vomiting, diarrhea Musculoskeletal: Denies: back pain, neck pain Neurological: Reports: headache Endocrine: Reports: fatigue Allergic/Immunologic: Reports: facial swelling Past Medical History - Past Medical History Attestation: Yes The following information was validated with the patient. Source: patient, nursing notes reviewed Medical history: Reports: DVT, hypertension, other Surgical history: Reports: no surgical history Psychiatric history: Reports: no psych history - Social History Smoking Status: Never smoker Smokeless Tobacco Status: No Alcohol use: Reports: none Drug use: Reports: none Physical Exam Vital Signs Temperature 100.5 F H 12/18/17 20:48 Pulse Rate 95 12/18/17 20:48 Respiratory Rate 18 12/18/17 20:48 Blood Pressure 120/80 12/18/17 20:48 O2 Sat by Pulse Oximetry 94 12/18/17 20:48 Temperature 100.5 F H 12/18/17 20:48 Pulse Rate 95 12/18/17 20:48 Respiratory Rate 18 12/18/17 20:48 Blood Pressure 120/80 12/18/17 20:48 O2 Sat by Pulse Oximetry 94 12/18/17 20:48 Oxygen Delivery Oxygen Delivery Room Air 37-year-old male who is alert and oriented 3 with a GCS of 15. Vision does not appear toxic but is febrile and diaphoretic. Patient has no focal neurologic deficits and has fluidity of speech. Patient has no loss of balance when walking. Patient has a visible herpetic rash to the right side of his forehead with involvement of the right eyelid. Inspection of patient's head shows vesicular eruption on the right side of his scalp. No involvement over the right ear. Patient has no involvement over the tip of his nose. - General Limitations: no limitations General appearance: alert, in no apparent distress - Head Head exam: atraumatic, normocephalic, normal inspection - Eye Eye exam: Present: normal appearance, PERRL, EOMI - ENT ENT exam: normal exam, normal oropharynx, mucous membranes moist - Neck Neck exam: Present: normal inspection, full ROM, trachea midline - Chest Chest inspection: Present: normal inspection, symmetric chest wall rise - Respiratory Respiratory exam: Present: normal lung sounds bilaterally. Absent: respiratory distress, wheezes - Cardiovascular Cardiovascular exam: Present: regular rate, normal rhythm, normal heart sounds - Abdominal Exam Abdominal exam: Present: soft, Non-Tender. Absent: tenderness, distention, guarding, rebound, rigidity - Extremities Exam Extremities exam: Present: normal inspection, full ROM, normal capillary refill. Absent: tenderness, pedal edema - Back Exam Back exam: Present: normal inspection, full ROM. Absent: tenderness, CVA tenderness (R), CVA tenderness (L) - Neurological Exam Neurological exam: Present: alert, oriented X3 - Psychiatric Psychiatric exam: Present: normal affect, normal mood - Skin Skin exam: Present: warm, dry, intact, normal color, rash Course Vital Signs Temperature 100.5 F H 12/18/17 20:48 Pulse Rate 95 12/18/17 20:48 Respiratory Rate 18 12/18/17 20:48 Blood Pressure 120/80 12/18/17 20:48 O2 Sat by Pulse Oximetry 94 12/18/17 20:48 Temperature 99.2 F 12/19/17 15:07 Pulse Rate 74 12/19/17 15:07 Respiratory Rate 20 12/19/17 15:07 Blood Pressure 168/71 12/19/17 15:07 O2 Sat by Pulse Oximetry 96 12/19/17 15:07 Oxygen Delivery Oxygen Delivery Room Air Medical Decision Making - MDM Narrative Medical decision making narrative: Shingles: Concern for possible shingles ophthalmicus. Patient presented a fever and facial pressure surrounding the lesions but no headache, or neck stiffness and patient does not appear toxic. Fluorescien stain applied to the eye with tetracaine eyedrops to rule out ophthalmicus. No signs of dendritic formation seen when inspected with vicente lamp. Discussed case with Dr. De Santiago of ophthalmology who states that he can follow- up with the patient as an outpatient if needed. Dr. De Santiago states that patient can be admitted for IV acyclovir if we think patient needs further work up. Patient currently has a low-grade fever 100.5 and is immunosuppressed secondary to his other comorbidities. I think the patient should be admitted and will be started on IV acyclovir 10 mg/kg. Patient given Tylenol for his fever. Patient agrees with decision for admission. Basic labs and PT-INR ordered Labs show WBC of 13.0 most likely 2/2 shingles, and hyponatremia of 130, with worsening VIPUL with increasing elevation of creatinine from Dec 16. currently 1.55 Dr. Carson the Hospitalist has accepted the pt for admission at 1237hrs - Lab Data Lab results reviewed: Yes I reviewed the patient's lab results. Lab results narrative: Short CBC 12/19/17 Range/Units 00:33 WBC 13.0 H (4.3-11.1) K/mcL Hgb 14.3 (12.9-16.9) g/dL Hct 41.3 (37.5-50.1) % Plt Count 219 (140-400) K/mcL Neutrophils # 10.1 H (1.6-8.9) K/mcL BMP 12/19/17 Range/Units 00:33 Sodium 130 L (136-145) mEq/L Potassium 4.4 (3.5-5.1) mEq/L Chloride 94 L (98-107) mEq/L Carbon Dioxide 25 (23-29) mEq/L BUN 23 H (6-20) mg/dL Creatinine 1.55 H (0.70-1.30) mg/dL Glucose 119 H (70-105) mg/dL Calcium 9.5 (8.6-10.3) mg/dL Result diagrams: 12/19/17 00:33 12/19/17 00:33 Lab Results 12/19/17 12/19/17 12/19/17 Range/Units 00:33 00:33 00:33 WBC 13.0 H (4.3-11.1) K/mcL RBC 5.23 (4.19-5.50) M/mcL Hgb 14.3 (12.9-16.9) g/dL Hct 41.3 (37.5-50.1) % MCV 79.0 L (83.0-100.0) fL MCH 27.3 L (28.0-33.3) pg MCHC 34.6 (31.6-35.5) g/dL RDW 14.1 (11.5-14.5) % Plt Count 219 (140-400) K/mcL MPV 10.0 (9.4-12.4) fL Immature Gran % 0.7 (0-4) % Seg Neutrophils % 77.4 % Lymphocytes % 8.1 % Monocytes % 12.8 % Eosinophils % 0.4 % Basophils % 0.6 % Neutrophils # 10.1 H (1.6-8.9) K/mcL Lymphocytes # 1.1 (0.6-4.6) K/mcL Monocytes # 1.7 H (0.0-1.3) K/mcL Eosinophils # 0.1 (0.0-0.6) K/mcL Basophils # 0.1 (0.0-0.2) K/mcL PT 31.8 H (9.4-12.1) Seconds INR 2.9 Sodium 130 L (136-145) mEq/L Potassium 4.4 (3.5-5.1) mEq/L Chloride 94 L (98-107) mEq/L Carbon Dioxide 25 (23-29) mEq/L BUN 23 H (6-20) mg/dL Creatinine 1.55 H (0.70-1.30) mg/dL Est GFR ( Amer) > 60 (> 60) Est GFR (Non-Af Amer) 51 L (> 60) BUN/Creatinine Ratio 15 (6-26) Glucose 119 H (70-105) mg/dL Calculated Osmolality 275 L (280-300) Calcium 9.5 (8.6-10.3) mg/dL - Radiology Data Radiology results reviewed: Yes I reviewed the patient's radiology results. Attestation Statement - Attestation Attestation: I, Pete Orozco, examined this patient and my medical decision-making was reviewed with the VAPOR COATER/PA/Advanced Practice Nurse/Resident Physician. I agree with the documented findings, disposition and treatment plan as described except to the extent set forth below. 37-year-old male presents emergency department for concerns of rash to his right upper face. Patient has shingles on initial evaluation. He is febrile. He is immunocompromised, taking prednisone daily for adrenal insufficiency. Patient will be started on IV medications secondary to immunocompromised state. Vicente lamp evaluation with fluorescein dye was performed in the emergency department which did not show evidence of herpetic dendrites of the cornea.
[2017-12-19 00:47] LABS: INR 2.9; Prothrombin Time 31.8 Seconds (9.4-12.1)
[2017-12-19 01:28] LABS: BUN/Creatinine Ratio 15 (6-26); Blood Urea Nitrogen 23 mg/dL (6-20); Calcium 9.5 mg/dL (8.6-10.3); Carbon Dioxide 25 mEq/L (23-29); Chloride 94 mEq/L (98-107); Glucose 119 mg/dL (70-105); Osmolality,Calculated 275 (280-300); Potassium 4.4 mEq/L (3.5-5.1); Sodium 130 mEq/L (136-145); eGFR For African Americans > 60 (> 60); eGFR For Non-African Americans 51 (> 60)
[2017-12-19] MEDS ORDERED: Naloxone 0.4 MG/ML INJ IVP PRN (03:33)
[2017-12-19] MEDS ORDERED: Ibuprofen 400 MG TABLET PO PRN (03:33)
[2017-12-19] MEDS ORDERED: Acetaminophen 325 MG TABLET PO PRN (03:33)
--- NOTE | 2017-12-19 03:46 | Internal Med History&Physical ---
Date of Encounter: 12/19/17 Time of Encounter: 03:44 Assessment and Plan (1) Zoster ophthalmicus Current visit: Yes Status: Acute Herpes zoster ophthalmicus also involving right forehead The patient does have a history of immunosuppression, high risk for loss of vision The patient is started on IV acyclovir, topical eyedrops Ophthalmology consult in the morning (2) Antiphospholipid syndrome Current visit: No Status: Acute Patient remains on warfarin, status post IVC filter (3) Adrenal insufficiency Current visit: Yes Status: Chronic History of adrenal insufficiency status post adrenal apoplexy The patient is on home dose of 10 mg prednisone by mouth daily His vitals remain stable at this time with only slight drop in BP, however he does appear hyponatremic Pulse 1 L of 0.9NS, Triple home dose prednisone to 30mg PO qd for stress dosing (4) History of immunosuppression therapy Current visit: Yes Status: Chronic Oral prednisone daily, will treat zoster with immunosuppression dose (5) DVT prophylaxis Current visit: No Status: Acute Patient is anticoagulated with warfarin Internal Medicine - H&P: HPI Chief complaint: Shingles in eye Admitted From: Emergency Dept Plans for Post Hospital Care: Home History of present illness: Mr. Cervantes is a 37 year old male with history of antiphospholipid C syndrome, DVT and PEs, adrenal insufficiency status post adrenal apoplexy who presents to the ED with 2 day history of shingles in his right eye. He said initially the rash began on his right forehead and extended onto his right scalp. Starting today the rash did extend towards his right eye and onto his right eyelid. He says that at the time that he noticed it starting, there was some blurriness in his right eye. That seems to have resolved at this time. He says that the pain is intense being 6 or 7 out of 10 for the most part. He does say that he has had some drainage from his eye and from the vesicles on his forehead. He has never had shingles before. He denies any other symptoms. Past Med Surg Social Fam HX - Past Medical History Medical history: DVT, hypertension, other Psychiatric history: no psych history - Past Surgical History Surgical History: no surgical history - Social History Smoking Status: Never smoker Smokeless Tobacco Status: No Alcohol use: none Drug use: none - Family History Father Family Member Ethnicity: Non- Living Status: Still Living Hx Family Cardiac Disorders: Yes (HTN) Hx Family Endocrine Disorder: Yes (DM) Mother Family Member Ethnicity: Non- Living Status: Still Living Hx Family Cardiac Disorders: No Hx Family Respiratory Disorders: No Hx Family Cancer: No Hx Family GI Disorders: No Hx Family Genitourinary Disorders: No Hx Family Endocrine Disorder: No Hx Family Musculoskeletal Disorders: No Hx Family Neuromuscular Disorders: No Hx Family Neurologic Disorders: No Hx Family HEENT Disorders: No Hx Family Autoimmune Disorders: No Hx Family Reproductive Disorders: No Hx Family Psychosocial Disorders: No Hx Family Medical Disorders: Yes (factor 5) Sister Family Member Ethnicity: Non- Living Status: Still Living Hx Family Cardiac Disorders: No Hx Family Respiratory Disorders: No Hx Family Cancer: No Hx Family GI Disorders: No Hx Family Genitourinary Disorders: No Hx Family Endocrine Disorder: No Hx Family Musculoskeletal Disorders: No Hx Family Neuromuscular Disorders: No Hx Family Neurologic Disorders: No Hx Family HEENT Disorders: No Hx Family Autoimmune Disorders: No Hx Family Reproductive Disorders: No Hx Family Psychosocial Disorders: No Hx Family Medical Disorders: Yes (factor 5) Internal Medicine - H&P: Meds Atenolol/Chlorthalidone [Tenoretic 50 Tablet] 1 tab PO DAILY 07/04/17 [History] Famotidine [Pepcid] 20 mg PO BID 09/20/17 [History] Fondaparinux Sodium [Arixtra] 10 mg SQ DAILY 09/20/17 [History] predniSONE [PredniSONE] 10 mg PO DAILY 09/20/17 [History] Aspirin [Lo-Dose Aspirin EC] 81 mg PO DAILY 11/30/17 [History] Nortriptyline [Pamelor] 25 mg PO HS 11/30/17 [History] Warfarin [Coumadin] 10 mg PO 1800 11/30/17 [History] 3 Allergy/AdvReac Type Severity Reaction Status Date / Time heparin Allergy See Verified 11/30/17 09:53 Comments levofloxacin [From Levaquin] Allergy See Verified 11/30/17 09:53 Comments All Systems PM: A 10-system review of systems was performed and is negative for pertinent findings except as documented above in the HPI. - Constitutional Constitutional: night sweats, no chills, no fever(s) - EENT Eyes: blurry vision (Resolved today), discharge, irritation, no change in vision , no pain, no photophobia Ears: no ear discharge, no ear pain, no tinnitus Nose, mouth and throat: no dysphagia, no nasal discharge, no neck pain, no sore throat - Cardiovascular Cardiovascular ROS IM: no chest pain, no diaphoresis, no dyspnea, no lightheadedness, no palpitations, no syncope - Respiratory Respiratory: no cough, no dyspnea - Gastrointestinal Gastrointestinal: no abdominal pain, no diarrhea, no hematemesis, no hematochezia, no melena, no nausea, no vomiting - Musculoskeletal Musculoskeletal ROS IM: no numbness, no tingling - Integumentary Integumentary IM: new lesions, rash, sores - Neurological Neurological ROS: loss of vision, no abnormal gait, no abnormal hearing, no confusion, no convulsions, no disequilibrium, no dizziness, no focal weakness, no numbness, no tingling, no tremor(s), no vertigo - Endocrine Endocrine IM: no cold intolerance, no excessive sweating, no fatigue, no flushing - Hematologic/Lymphatic Hematologic/Lymphatic: no easy bruising - Constitutional Vitals: Temp Pulse Resp BP Pulse Ox 98.1 F 83 18 107/70 95 12/19/17 02:21 12/19/17 02:21 12/19/17 02:21 12/19/17 02:21 12/19/17 02:21 Exam: Gen.: Vitals noted. No acute distress. AAOx3 HEENT: Normocephalic, atraumatic. Vesicular rash present on distribution of right trigeminal nerve with inclusion of right forehead, palpebral folds, and onto the right frontal scalp. Rash is significantly tender to palpation. There is no changes in visual acuity, sensation is intact. Flushing is noted in the cheeks with significant diaphoresis Neck: Supple. No adenopathy. Cardiac: RRR, no murmur, +S1/S2 Abdomen: soft, nontender, BS noted, no guarding MSK: ROM intact, no joint swelling noted Neuro: A&Ox3, moves all extremities, no focal deficits Psych: Appropriate mood and behavior Internal Med - H&P Results - Labs CBC & Chem 7: 12/19/17 00:33 12/19/17 00:33
[2017-12-19] MEDS: *HR* Morphine 2 MG/ML SYRINGE IVP PRN ×3 (04:27→20:21)
[2017-12-19] MEDS ORDERED: MethylPREDNISolone 40 MG/ML VIAL IVP ONE (05:15)
[2017-12-19] MEDS: predniSONE 20 MG TABLET PO SCH (07:56)
[2017-12-19] MEDS: ACYCLOVIR IVPB SCH ×2 (07:56→17:17)
[2017-12-19] MEDS: D5 IVPB SCH ×2 (07:56→17:17)
[2017-12-19] MEDS: WATER IVPB SCH ×2 (07:56→17:17)
[2017-12-19] MEDS ORDERED: *HR* Fondaparinux 7.5 MG/0.6 ML SYRINGE SQ SCH (09:00)
[2017-12-19] MEDS ORDERED: predniSONE 20 MG TABLET PO SCH (09:00)
[2017-12-19] MEDS ORDERED: Aspirin Enteric Coated 81 MG Tablet PO SCH (09:00)
[2017-12-19 09:29] LABS: Prothrombin Time 33.2 Seconds (9.4-12.1)
[2017-12-19] MEDS: *HR* OxyCODONE/APAP 5/325 TABLET PO PRN ×2 (13:30→17:16)
--- NOTE | 2017-12-19 16:58 | Event Note ---
Date of Encounter: 12/19/17 Time of Encounter: 11:00 37-year-old male with history of immunosuppression due to chronic steroid use for adrenal insufficiency found to have Herpes zoster ophthalmicus involving right forehead Ophthalmology following with recommendations to continue IV acyclovir and for follow-up as an outpatient
--- NOTE | 2017-12-19 17:02 | Internal Medicine Consult Note ---
Date of Encounter: 12/19/17 Time of Encounter: 16:23 Internal Medicine - CN: HPI - Data of Consult Requesting Physician: Toño Amaya - Consult Narrative History of present illness: Mr. Cervantes is a 37 year old male who reports a vesicular rash involving the right for head scalp and right upper eyelid. He reports good vision and no discomfort of his eye. Patient has antiphospholipid syndrome, adrenal insufficiency, and history of immunosuppressive therapy (on oral prednisone daily). Examination revealed visual acuity without correction of 20/20 in the right eye and 20/20 in the left eye (near equivalent Snellen). External examination revealed a vesicular rash involving the right scalp, right forehead and right upper eyelid. Confrontation visual yee were full and normal in both eyes. Ocular motility testing revealed full excursion of both eyes to wall cardinal positions of gaze. The pupils were equal round and reactive to light with no relative afferent pupillary defects noted. External examination revealed a vesicular rash of the right scalp, right forehead and right upper eyelid. Slit-lamp examination revealed a vesicular rash of the right upper eyelid. Otherwise the eyelids were normal. The conjunctiva was normal in both eyes the cornea was clear in both eyes with the exception of a fine mucus filament at the 12:00 limbus in the right eye. The anterior chamber was grade 3 in depth and clear in both eyes. The iris was normal in both eyes. The lens was normal in both eyes. The intraocular pressures were 16 mmHg in the right eye and 14 mmHg in the left eye by applanation at about 4:00 PM. The pupils were dilated with 1% tropicamide drops. Further examination revealed a clear lens in both eyes. The vitreous was clear in both eyes. The optic nerve heads were normal with a cup-to-disc ratio of 0.2 in both eyes. The macula, pole and retinal vessels were normal in both eyes in the retinal periphery was normal in both eyes. Impression herpes zoster ophthalmicus with eyelid dermatitis of the right upper eyelid. Recommendation: 1. Continue systemic antiviral therapy (IV acyclovir) for a 7-10 day course. 2. Patient may apply warm compresses to the rash 3 to 4 times daily as needed for comfort. 3. Apply antibiotic ointment (e.g. Polymixin, triple antibiotic ointment or Bactroban) to the rash twice daily until dry. 4. Patient should follow up in my office in 1 week. 5. Please contact me if his condition worsens before that time. Past Med Surg Social Fam HX - Past Medical History Medical history: DVT, hypertension, other Psychiatric history: no psych history - Past Surgical History Surgical History: no surgical history - Social History Smoking Status: Never smoker Smokeless Tobacco Status: No Alcohol use: none Drug use: none - Family History Father Family Member Ethnicity: Non- Living Status: Still Living Hx Family Cardiac Disorders: Yes (HTN) Hx Family Endocrine Disorder: Yes (DM) Mother Family Member Ethnicity: Non- Living Status: Still Living Hx Family Cardiac Disorders: No Hx Family Respiratory Disorders: No Hx Family Cancer: No Hx Family GI Disorders: No Hx Family Genitourinary Disorders: No Hx Family Endocrine Disorder: No Hx Family Musculoskeletal Disorders: No Hx Family Neuromuscular Disorders: No Hx Family Neurologic Disorders: No Hx Family HEENT Disorders: No Hx Family Autoimmune Disorders: No Hx Family Reproductive Disorders: No Hx Family Psychosocial Disorders: No Hx Family Medical Disorders: Yes (factor 5) Sister Family Member Ethnicity: Non- Living Status: Still Living Hx Family Cardiac Disorders: No Hx Family Respiratory Disorders: No Hx Family Cancer: No Hx Family GI Disorders: No Hx Family Genitourinary Disorders: No Hx Family Endocrine Disorder: No Hx Family Musculoskeletal Disorders: No Hx Family Neuromuscular Disorders: No Hx Family Neurologic Disorders: No Hx Family HEENT Disorders: No Hx Family Autoimmune Disorders: No Hx Family Reproductive Disorders: No Hx Family Psychosocial Disorders: No Hx Family Medical Disorders: Yes (factor 5) Internal Medicine - CN: Meds Atenolol/Chlorthalidone [Tenoretic 50 Tablet] 1 tab PO DAILY 07/04/17 [History] Famotidine [Pepcid] 20 mg PO BID 09/20/17 [History] Aspirin [Lo-Dose Aspirin EC] 81 mg PO DAILY 11/30/17 [History] Nortriptyline [Pamelor] 50 mg PO HS 11/30/17 [History] Warfarin [Coumadin] 10 mg PO SUMOTUWETHFR 11/30/17 [History] Warfarin [Coumadin] 15 mg PO SA 12/19/17 [History] 3 Allergy/AdvReac Type Severity Reaction Status Date / Time heparin Allergy See Verified 11/30/17 09:53 Comments levofloxacin [From Levaquin] Allergy See Verified 01/02/18 09:53 Comments Internal Medicine - CN: Exam - Constitutional Vitals: Temp Pulse Resp BP Pulse Ox 99.2 F 74 20 168/71 96 12/19/17 15:07 12/19/17 15:07 12/19/17 15:07 12/19/17 15:07 12/19/17 15:07 Internal Medicine - CN: Reslt - Labs CBC & Chem 7: 12/19/17 00:33 12/19/17 00:33 - ABG Interpretation ABG results: PT/INR, D-dimer PT 33.2 Seconds (9.4-12.1) H 12/19/17 09:08 Consult Discharge Plan - Plan Referrals: Vic Navarro [Primary Care Provider] -
[2017-12-19] MEDS: Aspirin Enteric Coated 81 MG Tablet PO SCH (17:17)
[2017-12-19] MEDS ORDERED: *HR* Warfarin 5 MG TABLET PO ONE (18:00)
[2017-12-19] MEDS ORDERED: Warfarin perPT PO PRN (18:00)
[2017-12-19] MEDS: Bacitracin/PolymyxinB OINT 14.17 GM TUBE TP SCH (20:09)
[2017-12-20] MEDS: ACYCLOVIR IVPB SCH ×2 (00:29→08:36)
[2017-12-20] MEDS: D5 IVPB SCH ×2 (00:29→08:36)
[2017-12-20] MEDS: WATER IVPB SCH ×2 (00:29→08:36)
[2017-12-20] MEDS: *HR* OxyCODONE/APAP 5/325 TABLET PO PRN ×3 (00:30→21:52)
[2017-12-20] MEDS: *HR* Morphine 2 MG/ML SYRINGE IVP PRN ×2 (02:36→09:49)
[2017-12-20 03:45] LABS: INR 4.3
[2017-12-20 03:48] LABS: Prothrombin Time 47.4 Seconds (9.4-12.1)
[2017-12-20] MEDS: Bacitracin/PolymyxinB OINT 14.17 GM TUBE TP SCH ×3 (08:36→21:45)
[2017-12-20] MEDS: predniSONE 20 MG TABLET PO SCH (08:37)
[2017-12-20 09:54] LABS: Calcium 9.6 mg/dL (8.6-10.3); Potassium 4.5 mEq/L (3.5-5.1)
[2017-12-20 10:05] LABS: Basophils % 0.2 %; Eosinophils % 0.1 %; Hematocrit 40.8 % (37.5-50.1); Hemoglobin 13.9 g/dL (12.9-16.9); Immature Granulocytes % 0.8 % (0-4); Lymphocytes # 1.3 K/mcL (0.6-4.6); Lymphocytes % 6.1 %; Mean Corpuscular HGB Conc 34.1 g/dL (31.6-35.5); Mean Corpuscular Volume 79.4 fL (83.0-100.0); Mean Platelet Volume 10.5 fL (9.4-12.4); Monocytes # 1.9 K/mcL (0.0-1.3); Neutrophils # 17.9 K/mcL (1.6-8.9); Platelet Count 241 K/mcL (140-400); Red Blood Count 5.14 M/mcL (4.19-5.50); Red Cell Distribution Width 13.6 % (11.5-14.5); Segmented Neutrophils % 83.8 %
[2017-12-20] MEDS: 0.9 % Sodium Chloride 1,000 ML IVC SCH (18:14)
--- NOTE | 2017-12-20 18:57 | Internal Med Progress Note ---
Date of Encounter: 12/20/17 Time of Encounter: 11:00 - Assessment and plan (1) Zoster ophthalmicus Current Visit: Yes Status: Acute Assessment and plan: Patient with improvement of Herpes zoster ophthalmicus involving right forehead Will discontinue IV acyclovir due to acute renal failure; patient has been placed on oral acyclovir and renally dosed (2) Antiphospholipid syndrome Current Visit: No Status: Acute Assessment and plan: -Patient with supratherapeutic INR so we will hold Coumadin -Continue monitoring INR (3) Adrenal insufficiency Current Visit: Yes Status: Chronic Assessment and plan: -Wll continue oral prednisone (4) VIPUL (acute kidney injury) Current Visit: Yes Status: Acute Assessment and plan: -Suspect secondary to IV acyclovir which has been discontinued and placed on renally dosed oral acyclovir -Continue IV fluids and monitor creatinine (5) Morbid obesity Current Visit: No Status: Chronic Assessment and plan: Lifestyle Modifications (6) DVT prophylaxis Current Visit: No Status: Acute Assessment and plan: On oral anticoagulation - Subjective Interval history: Patient with now acute renal failure Patient's orbital cellulitis has improved on IV acyclovir - Constitutional Vitals: Temp Pulse Resp BP Pulse Ox 97.9 F 71 16 140/90 97 12/20/17 16:12 12/20/17 16:12 12/20/17 16:12 12/20/17 16:12 12/20/17 16:12 - Respiratory Respiratory exam: Present: CTAB. Absent: accessory muscle use, rales, rhonchi, wheezes - Cardiovascular Cardiovascular exam: Present: RRR, +S1, +S2. Absent: diastolic murmur, gallop, rubs, systolic murmur Internal Medicine: Result - Labs CBC & Chem 7: 12/20/17 09:22 12/20/17 09:22 Labs: Short CBC 12/20/17 Range/Units 09:22 WBC 21.3 H D (4.3-11.1) K/mcL Hgb 13.9 (12.9-16.9) g/dL Hct 40.8 (37.5-50.1) % Plt Count 241 (140-400) K/mcL Neutrophils # 17.9 H (1.6-8.9) K/mcL BMP 12/20/17 09:22 Sodium 134 L Potassium 4.5 Chloride 98 Carbon Dioxide 25 BUN 45 H Creatinine 3.67 H Glucose 118 H Calcium 9.6 - ABG Interpretation ABG results: PT/INR, D-dimer PT 47.4 Seconds (9.4-12.1) H* 12/20/17 02:56 Consult Discharge Plan - Plan Referrals: Vic Navarro [Primary Care Provider] -
[2017-12-20] MEDS: Aspirin Enteric Coated 81 MG Tablet PO SCH (21:45)
[2017-12-21] MEDS: 0.9 % Sodium Chloride 1,000 ML IVC SCH ×3 (01:46→18:35)
[2017-12-21] MEDS: *HR* Morphine 2 MG/ML SYRINGE IVP PRN ×3 (01:47→21:35)
[2017-12-21 05:33] LABS: INR 4.9
[2017-12-21] MEDS ORDERED: Acyclovir 500 MG in D5% in Water 250 ML IVPB SCH (08:00)
[2017-12-21] MEDS: predniSONE 20 MG TABLET PO SCH (08:08)
[2017-12-21] MEDS: Bacitracin/PolymyxinB OINT 14.17 GM TUBE TP SCH ×3 (08:11→19:45)
[2017-12-21] MEDS: *HR* OxyCODONE/APAP 5/325 TABLET PO PRN ×3 (08:18→23:36)
--- NOTE | 2017-12-21 11:12 | Internal Med Progress Note ---
Date of Encounter: 12/21/17 Time of Encounter: 11:11 - Assessment and plan (1) Zoster ophthalmicus Current Visit: Yes Status: Acute Assessment and plan: Patient with improvement of Herpes zoster ophthalmicus involving right forehead Imporiving slowly since he does have active vesicles will put the pt on contact isolation cont PO Acyclovir He still need close monitoring with his supra therapeutic INR and VIPUL Will switch him to full admission today Reviewed my colleague's H & P including HPI, PMH,PSH,FH,SH and ROS, no changes noticed (2) Antiphospholipid syndrome Current Visit: No Status: Acute Assessment and plan: with h/o DVT ad PE Patient with supratherapeutic INR..INR is still keep going up..today @ 4.9 Cont holding Coumadin Continue monitoring INR (3) Morbid obesity Current Visit: No Status: Chronic Assessment and plan: Lifestyle Modifications (4) VIPUL (acute kidney injury) Current Visit: Yes Status: Acute Assessment and plan: Suspect secondary to IV acyclovir as well as Chlorthalidone Cont renally dosed oral acyclovir Continue IV fluids and monitor creatinine (5) Adrenal insufficiency Current Visit: Yes Status: Chronic Assessment and plan: -Wll continue oral prednisone - Subjective Interval history: Mr. Cervantes is a 37 year old male with history of antiphospholipid C syndrome, DVT and PEs, adrenal insufficiency status post adrenal apoplexy who presents to the ED with 2 day history of shingles in his right eye. He said initially the rash began on his right forehead and extended onto his right scalp. Starting today the rash did extend towards his right eye and onto his right eyelid. Pt was admitted here and started him on IV Acyclovir and IV steroids for his Adrenal insufficiency. Pt stated his pain and rash seems to be improving. Denied any CP / SOB - Constitutional Vitals: Temp Pulse Resp BP Pulse Ox 97.6 F 56 18 127/85 95 12/21/17 10:52 12/21/17 10:52 12/21/17 10:52 12/21/17 10:52 12/21/17 10:52 General appearance: Present: A&O X 3, no acute distress - Eye Additional comments: Improving vesicular rash over Rt forehead, Rt upper eyelid and Rt side of scalp. Improving erythema - Neck Neck exam general surgery: Present: supple - Respiratory Respiratory exam: Present: decreased breath sounds. Absent: rales, respiratory distress, rhonchi, wheezes - Cardiovascular Cardiovascular exam: Present: RRR, +S1, +S2. Absent: tachycardia - GI/Abdominal GI/Abdominal exam: Present: normal bowel sounds, soft. Absent: rebound, rigid, tenderness - Extremities Exam Extremities exam: Absent: calf tenderness, pedal edema, tenderness - Back Exam Back exam: Absent: CVA tenderness (L), CVA tenderness (R) - Psychiatric Psychiatric exam: Present: normal affect, normal mood Internal Medicine: Result - Labs CBC & Chem 7: 12/20/17 09:22 12/20/17 09:22 - ABG Interpretation ABG results: PT/INR, D-dimer PT 55.0 Seconds (9.4-12.1) H* 12/21/17 04:19 Consult Discharge Plan - Plan Referrals: Vic Navarro [Primary Care Provider] -
[2017-12-21 11:34] LABS: Basophils % 0.1 %; Eosinophils % 0.1 %; Hematocrit 38.8 % (37.5-50.1); Hemoglobin 13.3 g/dL (12.9-16.9); Immature Granulocytes % 0.7 % (0-4); Lymphocytes # 0.7 K/mcL (0.6-4.6); Lymphocytes % 4.2 %; Mean Corpuscular HGB Conc 34.3 g/dL (31.6-35.5); Mean Corpuscular Hemoglobin 27.5 pg (28.0-33.3); Mean Corpuscular Volume 80.3 fL (83.0-100.0); Mean Platelet Volume 10.3 fL (9.4-12.4); Monocytes # 0.7 K/mcL (0.0-1.3); Monocytes % 4.5 %; Neutrophils # 14.2 K/mcL (1.6-8.9); Platelet Count 212 K/mcL (140-400); Red Blood Count 4.83 M/mcL (4.19-5.50); Red Cell Distribution Width 13.5 % (11.5-14.5); Segmented Neutrophils % 90.4 %
[2017-12-21 11:49] LABS: Calcium 9.3 mg/dL (8.6-10.3); Potassium 4.3 mEq/L (3.5-5.1)
[2017-12-21] MEDS: Aspirin Enteric Coated 81 MG Tablet PO SCH (18:08)
[2017-12-22 04:58] LABS: Basophils % 0.1 %; Eosinophils % 0.3 %; Hematocrit 36.5 % (37.5-50.1); Hemoglobin 12.1 g/dL (12.9-16.9); Immature Granulocytes % 0.6 % (0-4); Lymphocytes # 1.4 K/mcL (0.6-4.6); Lymphocytes % 13.5 %; Mean Corpuscular HGB Conc 33.2 g/dL (31.6-35.5); Mean Corpuscular Hemoglobin 27.3 pg (28.0-33.3); Mean Corpuscular Volume 82.2 fL (83.0-100.0); Mean Platelet Volume 10.5 fL (9.4-12.4); Monocytes # 0.9 K/mcL (0.0-1.3); Monocytes % 8.4 %; Neutrophils # 7.9 K/mcL (1.6-8.9); Platelet Count 204 K/mcL (140-400); Red Blood Count 4.44 M/mcL (4.19-5.50); Red Cell Distribution Width 13.6 % (11.5-14.5); Segmented Neutrophils % 77.1 %
[2017-12-22 04:59] LABS: INR 4.1
[2017-12-22 05:02] LABS: Prothrombin Time 45.7 Seconds (9.4-12.1)
[2017-12-22 05:18] LABS: Calcium 8.9 mg/dL (8.6-10.3); Potassium 4.3 mEq/L (3.5-5.1)
[2017-12-22 06:40] VITALS: BP 138/88
--- NOTE | 2017-12-22 08:25 | Discharge Summary ---
Date of Encounter: 12/22/17 Time of Encounter: 08:21 - Discharge Diagnosis (1) Zoster ophthalmicus Priority: Primary Status: Acute (2) Antiphospholipid syndrome Priority: Primary Status: Acute (3) Morbid obesity Priority: Secondary Status: Chronic (4) VIPUL (acute kidney injury) Priority: Secondary Status: Acute (5) Adrenal insufficiency Priority: Secondary Status: Chronic (6) CKD (chronic kidney disease) stage 3, GFR 30-59 ml/min Priority: Secondary Status: Chronic - Discharge Medications Prescriptions: OxyCODONE/APAP 5/325 [Percocet 5/325 MG] 1 each PO Q6HR PRN #15 tablet PRN Reason: Moderate Pain Acyclovir [Zovirax] 800 mg PO 5XD #20 tablet Atenolol [Tenormin] 50 mg PO DAILY #30 tablet Home Medications: Famotidine [Pepcid] 20 mg PO BID 09/20/17 [History] Aspirin [Lo-Dose Aspirin EC] 81 mg PO DAILY 11/30/17 [History] Nortriptyline [Pamelor] 50 mg PO HS 11/30/17 [History] Warfarin [Coumadin] 10 mg PO SUMOTUWETHFR 11/30/17 [History] Warfarin [Coumadin] 15 mg PO SA 12/19/17 [History] Acyclovir [Zovirax] 800 mg PO 5XD #20 tablet 12/22/17 [Rx] Atenolol [Tenormin] 50 mg PO DAILY #30 tablet 12/22/17 [Rx] Bacitracin/PolymyxinB OINT [Polysporin] 1 appl TP TID tube 12/22/17 [Rx] OxyCODONE/APAP 5/325 [Percocet 5/325 MG] 1 each PO Q6HR PRN #15 tablet 12/22/17 [Rx] predniSONE [PredniSONE] 10 mg PO DAILY 12/22/17 [History] Allergies/Adverse Reactions: 3 Allergy/AdvReac Type Severity Reaction Status Date / Time heparin Allergy See Verified 11/30/17 09:53 Comments levofloxacin [From Levaquin] Allergy See Verified 11/30/17 09:53 Comments Date of admission: 12/21/17 11:18 Primary care physician: Vic Navarro - Patient Status Disposition: Home, Self-Care Condition: Good Overall status at discharge: patient is back to baseline - Discharge Instructions Instructions: Herpes Zoster (DC) Follow Up With: Vic Navarro [Primary Care Provider] - Alexandr De Santiago, [Non-Partnered Physician] - Additional Instructions: Please do not take Coumadin today Go for PT / INR in AM and f/u with Coumadin clinic for further Coumadin dosing Please see eye doctor in 1 week - Diet and Activity Activity: increase activity as tolerated Diet: low salt diet Hospital course: Mr. Cervantes is a 37 year old male with history of antiphospholipid C syndrome, DVT and PEs, adrenal insufficiency status post adrenal apoplexy who presents to the ED with 2 day history of shingles in his right eye. He said initially the rash began on his right forehead and extended onto his right scalp. Starting today the rash did extend towards his right eye and onto his right eyelid. Pt was admitted here and started him on IV Acyclovir and IV steroids for his Adrenal insufficiency. Pt was evaluated Planning Consultant Dr. De Santiago, who suggested cont Acyclovir and f/u with him as an out pt. His symptoms started improving slowly. He did develop Supra therapeutic INR and worsening kidney function mostly due to dehydration + Chlorthalidone + Acyclovir. So changed the acyclovir to renal dose 800mg 5xday, held chlorthalidone and started him on iV hydration. His INR started trending down today it was 4.1 and his Cr also started trending down. So will d/c him home today in stable condition. Recommend to continue his home dose Prednisone 10mg PO daily due to his Adrenal insufficiency. - Time Spent with Patient Total time spent providing and/or coordinating discharge services: - Constitutional Vitals: Temp Pulse Resp BP Pulse Ox 97.4 F L 64 18 138/88 99 12/22/17 06:39 12/22/17 06:39 12/22/17 06:39 12/22/17 06:39 12/22/17 06:39 General appearance: Present: A&O X 3, no acute distress - Head Head exam: Present: atraumatic Additional comments: Improving rahs over Rt forehead, scalp and Rt upper eyelid area - Neck Neck exam general surgery: Present: supple - Respiratory Respiratory exam: Present: decreased breath sounds. Absent: rales, respiratory distress, rhonchi, wheezes - Cardiovascular Cardiovascular exam: Present: +S1, +S2 - GI/Abdominal GI/Abdominal exam: Present: soft. Absent: rebound, rigid
[2017-12-22] MEDS: predniSONE 20 MG TABLET PO SCH (08:42)
[2017-12-22] MEDS: Bacitracin/PolymyxinB OINT 14.17 GM TUBE TP SCH (08:43)
== END 2017-12-22 11:18 | disposition home or self-care (01) | DRG 125 ==
LOC: 3NENU 20:24 → EMEROO 20:24 → SUATTDRO 12-19 00:51 → 3NENU 12-19 01:05 → 3ANU 12-20 10:05
PROVIDERS: ADMIT Internal Medicine; ATTEND Family Medicine